=== PATIENT | male | born 1965 | race Caucasian/White ===

== ENCOUNTER 2017-05-21 11:21 | Inpatient (IN) | payer MEDICARE, OTHER ==
[2017-05-21 11:45] VITALS: BMI 19.3
--- NOTE | 2017-05-21 12:57 | HP ---
COWS - Scale Resting Pulse: 0= [place] 80 or Below Sweatin= Chills/Flushing Restless Observation: 1= Difficult to Sit Still Pupil Size: 1= Pupils >than Normal Bone or Joint Aches: 1= Mild Discomfort Runny Nose/ Eye Tearin= Nasal Congestion GI Upset > 30mins: 2= Nausea/Diarrhea Tremor Observation: 2= Slight Tremor Visible Yawning Observation: 1= 1-2x During Session Anxiety or Irritability: 2=Irritable/Anxious Goose Flesh Skin: 3=Piloerection COWS Score: 15 CIWA Score - CIWA Score Nausea/Vomitin Muscle Tremors: 4-Moderate,w/Arms Extend Anxiety: 4-Mod. Anxious/Guarded Agitation: 4-Moderately Restless Paroxysmal Sweats: 3 Orientation: 0-Oriented Tacttile Disturbances: 0-None Auditory Disturbances: 0-None Visual Disturbances: 0-None Headache: 3-Moderate CIWA-Ar Total Score: 21 Admission [facility] - HPI Chief Complaint: withdrawal sx Allergies/Adverse Reactions: Allergies Allergy/AdvReac Type Severity Reaction Status Date / Time No Known Allergies Allergy Verified 05/21/17 12:14 History of Present Illness: 51 yo m with h/o chronic alcoholism, no longer drinking, using heroin x2 years nd xanax daily, last used this AM PMHX nicotien dependence, no other illnesses, no on any medications. requesting detox from heroin and xanax, never been in detox for heroin before. no h/o seiuzres or DTS - Ebola screening Have you traveled outside of the country in the last 21 days: No Have you had contact with anyone from an Ebola affected area: No Have you been sick,other than usual withdrawal symptoms: No Do you have a fever: No - Review of Systems Constitutional: Chills, Diaphoresis, Loss of Appetite, Unintentional Wgt. 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 1981), Nose Congestion Respiratory: reports: No Symptoms reported Cardiac: reports: No Symptoms Reported GI: reports: Diarrhea, Nausea, Poor Appetite, Poor Fluid Intake, Vomiting, Indigestion, Abdominal cramping : reports: No Symptoms Reported Endocrine: reports: No Symptoms Reported Hematology: reports: No Symptoms Reported Psychiatric: reports: Judgement Intact, Mood/Affect Appropiate, Orientated x3, Anxious, Depressed, Disorientated Other Systems: Reviewed and Negative Patient History - Patient Medical History Hx Anemia: No Hx Asthma: No Hx Chronic Obstructive Pulmonary Disease (COPD): No Hx Cancer: No Hx Cardiac Disorders: No Hx Congestive Heart Failure: No Hx Hypertension: No Hx Hypercholesterolemia: No Hx Pacemaker: No HX Cerebrovascular Accident: No Hx Seizures: No Hx Dementia: No Hx Diabetes: No Hx Gastrointestinal Disorders: No Hx Liver Disease: No Hx Genitourinary Disorders: No Hx Sexually Transmitted Disorders: No Hx Renal Disease (ESRD): No Hx Thyroid Disease: No Hx Human Immunodeficiency Virus (HIV): No Hx Hepatitis C: No Hx Depression: No Hx Suicide Attempt: No Hx Bipolar Disorder: No Hx Schizophrenia: No - Patient Surgical History Past Surgical History: Yes Hx Neurologic Surgery: No Hx Cataract Extraction: No Hx Cardiac Surgery: No Hx Lung Surgery: No Hx Breast Surgery: No Hx Breast Biopsy: No Hx Abdominal Surgery: No Hx Appendectomy: No Hx Cholecystectomy: No Hx Genitourinary Surgery: No Hx Section: No Hx Orthopedic Surgery: No Other Surgical History: trauma, right ear in 1981 Anesthesia Reaction: No - PPD History Previous Implant?: Yes Documented Results: Negative w/o proof Implanted On Prior R Admission?: No - Reproductive History Patient is a Female of Child Bearing Age (11 -55 yrs old): No Patient : No - Smoking Cessation Smoking history: Current every day smoker Have you smoked in the past 12 months: Yes Aproximately how many cigarettes per day: 20 Hx Chewing Tobacco Use: No Initiated information on smoking cessation: Yes 'Breaking Loose' booklet given: 05/21/17 - Substance & Tx. History Hx Alcohol Use: Yes (has not used for years) Hx Substance Use: Yes Substance Use Type: Alcohol, Heroin, Opiates, Prescribed, Tranquilizers Hx Substance Use Treatment: Yes ([facility] - Substances Abused Heroin Route: Inhalation Frequency: Daily Amount used: 4-5 bags Age of first use: 49 Date of Last Use: 05/21/17 Xanax Route: Oral Frequency: 3-6 times per week Amount used: 2 mg. Age of first use: 51 Date of Last Use: 05/18/17 Family Disease History - Family Disease History Family Disease History: [place]: Sister, Other: Grandparent (etoh), Father (etoh), Mother (etoh) Admission Physical Exam [facility] - Vital Signs Vital Signs: Vital Signs - 24 hr 05/21/17 11:44 Temperature 97.7 F Pulse Rate 70 Respiratory 18 Rate Blood Pressure 135/90 - Physical General Appearance: Yes: Nourished, Appropriately Dressed, Disheveled, Mild Distress, Thin, Tremorous, Irritable, Sweating, Anxious HEENTM: Yes: EOMI, Normocephalic, Normal Voice, HELENA, Pharynx Normal, Other ( decreased hearing r ear) Respiratory: Yes: Within Normal Limits, Chest Non-Tender, Lungs Clear, Normal Breath Sounds, No Respiratory Distress, No Accessory Muscle Use Neck: Yes: Within Normal Limits, No masses,lesions,Nodules, Supple, Trachea in good position Cardiology: Yes: Within Normal Limits, Regular Rhythm, Regular Rate, S1, S2 Abdominal: Yes: Normal Bowel Sounds, Non Tender, Flat, Soft, Increased Bowel Sounds Genitourinary: Yes: Within Normal Limits Back: Yes: Within Normal Limits, Normal Inspection Musculoskeletal: Yes: full range of Motion, Gait Steady, Back pain (withdrawal sx), Muscle Pain Extremities: Yes: Normal Capillary Refill, Normal Range of Motion, Non-Tender, Tremors 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: 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: 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 NML intact, Fully Oriented, Alert, Motor Strength 5/5, Unresponsive, Depressed Affect Integumentary: Yes: Normal Color, Warm, Diaphoresis Lymphatic: Yes: Within Normal Limits - Addiitonal Findings: withdrawal sx - Diagnostic (1) Nicotine dependence Current Visit: No Status: Acute (2) Alcohol dependence in remission Current Visit: Yes Status: Acute (3) Sedative, hypnotic or anxiolytic dependence with withdrawal, uncomplicated Current Visit: Yes Status: Acute (4) Opioid dependence with withdrawal Current Visit: Yes Status: Acute (5) Insomnia Current Visit: Yes Status: Acute [facility] Breath Alcohol Content Breath Alcohol Content: 0 Urine Drug Screen - Results Drug Screen Negative: No Urine Drug Screen Results: THC-Marijuana, ANNA-Cocaine, OPI-Opiates
[2017-05-21] MEDS ORDERED: MAG HYDROX/AL HYDROX/SIMETH 30 ML UNIT-DOSE CUP PO PRN (13:01)
[2017-05-21] MEDS ORDERED: hydrOXYzine PAMOATE 50 MG CAPSULE (FP) PO PRN (13:01)
[2017-05-21] MEDS ORDERED: ACETAMINOPHEN 325 MG TABLET (FP) PO PRN (13:01)
[2017-05-21] MEDS ORDERED: guaiFENesin/D-METHORPHAN HB 10 ML UNIT-DOSE CUPS PO PRN (13:01)
[2017-05-21] MEDS ORDERED: MAGNESIUM CITRATE 300 ML BOTTLE PO PRN (13:01)
[2017-05-21] MEDS ORDERED: P-EPHED 60MG/TRIPROLIDI 2.5MG TABLET PO PRN (13:01)
[2017-05-21] MEDS ORDERED: MAGNESIUM HYDROX 2400MG/30ML ORAL SUSPENSION 30 ML CUP PO PRN (13:01)
[2017-05-21] MEDS ORDERED: NICOTINE POLACRILEX 4 MG GUM BC PRN (13:01)
[2017-05-21] MEDS ORDERED: LOPERAMIDE HCL 2 MG CAPSULE PO PRN (13:01)
[2017-05-21] MEDS ORDERED: MENTHOL/PHENOL 1 EACH UD MM PRN (13:01)
[2017-05-21] MEDS ORDERED: IBUPROFEN 400 MG TABLET (FP) PO PRN (13:01)
[2017-05-21] MEDS ORDERED: ZOLPIDEM TARTRATE 10 MG TABLET (PARK CARE ONLY) PO PRN (13:05)
[2017-05-21] MEDS ORDERED: diazePAM 5 MG TABLET PO ONE (13:30)
[2017-05-21] MEDS ORDERED: METHADONE HCL 10 MG TABLET (FOR DETOX USE ONLY) PO ONE ×2 (13:30→23:00)
[2017-05-21] MEDS: NICOTINE 21 MG/24 HOURS TOPICAL PATCH TD SCH (14:44)
[2017-05-21 15:18] LABS: HIV 1 & 2 AB NEGATIVE; HIV 1 AGp24 NEGATIVE
[2017-05-21 16:23] LABS: URINE APPEARANCE SLCLOUDY; URINE BILIRUBIN NEGATIVE (NEGATIVE); URINE BLOOD NEGATIVE (NEGATIVE); URINE COLOR AMBER; URINE GLUCOSE (UA) NEGATIVE (NEGATIVE); URINE KETONE TRACE (NEGATIVE); URINE NITRITE NEGATIVE (NEGATIVE); URINE PROTEIN NEGATIVE (NEGATIVE)
--- NOTE | 2017-05-21 17:08 | EKG ---
Test Reason : Blood Pressure : / mmHG Vent. Rate : 069 BPM Atrial Rate : 069 BPM P-R Int : 156 ms QRS Dur : 082 ms QT Int : 390 ms P-R-T Axes : 076 065 075 degrees QTc Int : 417 ms NORMAL SINUS RHYTHM NORMAL ECG NO PREVIOUS ECGS AVAILABLE Confirmed by EDUARDO BELTRE MD ([id number]) on 05/21/2017 5:08:23 PM Referred By: Confirmed By:EDUARDO BELTRE MD
[2017-05-21 17:51] LABS: URINE LEUK ESTERASE Negative (NEGATIVE)
[2017-05-21] MEDS: diazePAM 5 MG TABLET PO SCH (22:15)
[2017-05-21] MEDS: THIAMINE HCL 100 MG TABLET (FP) PO SCH (22:15)
[2017-05-22] MEDS: diazePAM 5 MG TABLET PO SCH ×3 (05:30→22:21)
[2017-05-22 09:50] LABS: CALCIUM 8.8 mg/dL (8.5-10.1)
[2017-05-22 09:55] LABS: ALK PHOS 92 U/L (45-117); ANION GAP 5 (8-16); BILIRUBIN,TOTAL 0.8 mg/dL (0.2-1.0); CO2 29 mmol/L (21-32); CREATININE 0.9 mg/dL (0.7-1.3); GLUCOSE,RANDOM 100 mg/dL (74-106); SGOT/AST 7 U/L (15-37); SGPT/ALT 15 U/L (12-78)
[2017-05-22 09:57] LABS: MCH 30.3 pg (25.7-33.7); MCHC 33.8 g/dl (32.0-35.9); MEAN CELL VOLUME 89.5 fl (80-96); PLATELET COUNT 215 K/MM3 (134-434); WHITE BLOOD COUNT 8.7 K/mm3 (4.0-10.0)
[2017-05-22] MEDS ORDERED: METHADONE HCL 10 MG TABLET (FOR DETOX USE ONLY) PO SCH (10:00)
[2017-05-22] MEDS: diazePAM 5 MG TABLET PO PRN ×2 (10:04→17:11)
[2017-05-22] MEDS: NICOTINE 21 MG/24 HOURS TOPICAL PATCH TD SCH (10:04)
[2017-05-22] MEDS: PRENATAL VITAMINS W/ FOLIC ACID TABLET (FP) PO SCH (10:04)
[2017-05-22] MEDS ORDERED: FLU VACCINE QUAD 60 MCG/0.5 ML (MDV 17-18) IM ONE (12:00)
--- NOTE | 2017-05-22 12:26 | PN ---
S CIWA - CIWA Score Nausea/Vomitin Muscle Tremors: 4-Moderate,w/Arms Extend Anxiety: 1-Mildly Anxious Agitation: 0-Normal Activity Paroxysmal Sweats: 3 Orientation: 0-Oriented Tacttile Disturbances: 2-Mild Itch/Numbness/Burn Auditory Disturbances: 2-Mild Harshness/Frighten Visual Disturbances: 3-Moderate Sensitivity Headache: 0-None Present CIWA-Ar Total Score: 17 S COWS - Scale Resting Pulse: 0= [place] 80 or Below Sweatin= Chills/Flushing Restless Observation: 0= Sits Still Pupil Size: 0= Normal to Room Light Bone or Joint Aches: 1= Mild Discomfort Runny Nose/ Eye Tearin= Nasal Congestion GI Upset > 30mins: 1= Stomach Cramp Tremor Observation of Outstretched Hands: 2= Slight Tremor Visible Yawning Observation: 1= 1-2x During Session Anxiety or Irritability: 2=Irritable/Anxious Goose Flesh Skin: 3=Piloerection COWS Score: 12 S Progress Note (SOAP) Subjective: Sweating, Stomach Cramping, Interrupted sleep, Tremors. Objective: PT. A & O X 3, OBSERVED AMBULATING ON UNIT. NO ACUTE DISTRESS. 05/22/17 12:25 Vital Signs Temperature 96.5 F L 05/22/17 10:00 Pulse Rate 64 05/22/17 10:00 Respiratory Rate 18 05/22/17 10:00 Blood Pressure 131/76 05/22/17 10:00 O2 Sat by Pulse Oximetry (%) Laboratory Tests 05/21/17 05/21/17 05/21/17 12:40 13:30 14:00 WBC RBC Hgb Hct MCV MCH MCHC RDW Plt Count MPV Sodium Potassium Chloride Carbon Dioxide Anion Gap BUN Creatinine Creat Clearance w eGFR Random Glucose Calcium Total Bilirubin AST ALT Alkaline Phosphatase Total Protein Albumin Urine Color Debbie Urine Appearance Slcloudy Urine pH 5.0 Ur Specific [place] 1.028 Urine Protein Negative Urine Glucose (UA) Negative Urine Ketones Trace H Urine Blood Negative Urine Nitrite Negative Urine Bilirubin Negative Urine Urobilinogen 2.0 Ur Leukocyte Esterase Negative Hepatitis C Antibody 0.1 HIV 1&2 Antibody Screen Negative HIV P24 Antigen Negative 05/22/17 05/22/17 06:00 06:00 WBC 8.7 RBC 5.17 Hgb 15.6 Hct 46.2 MCV 89.5 MCH 30.3 MCHC 33.8 RDW 14.0 Plt Count 215 MPV 9.0 Sodium 138 Potassium 4.0 Chloride 104 Carbon Dioxide 29 Anion Gap 5 L BUN 14 Creatinine 0.9 Creat Clearance w eGFR > 60 Random Glucose 100 Calcium 8.8 Total Bilirubin 0.8 AST 7 L ALT 15 Alkaline Phosphatase 92 Total Protein 7.0 Albumin 4.0 Urine Color Urine Appearance Urine pH Ur Specific [place] Urine Protein Urine Glucose (UA) Urine Ketones Urine Blood Urine Nitrite Urine Bilirubin Urine Urobilinogen Ur Leukocyte Esterase Hepatitis C Antibody HIV 1&2 Antibody Screen HIV P24 Antigen LABS NOTED. RPR RESULT PENDING. 05/22/17 12:26 Assessment: 05/22/17 12:25 WITHDRAWAL SYMPTOMS. Plan: CONTINUE DETOX. INCREASE DAILY PO FLUID INTAKE.
[2017-05-22] MEDS: THIAMINE HCL 100 MG TABLET (FP) PO SCH (22:21)
[2017-05-23 06:45] VITALS: PULSE 61
[2017-05-23 09:51] VITALS: BP 127/78; TEMP 96.3
[2017-05-23] MEDS ORDERED: METHADONE HCL 5 MG TABLET (FOR DETOX USE ONLY) PO SCH (10:00)
[2017-05-23] MEDS ORDERED: diazePAM 5 MG TABLET PO SCH (10:00)
[2017-05-23] MEDS: PRENATAL VITAMINS W/ FOLIC ACID TABLET (FP) PO SCH (10:02)
[2017-05-23] MEDS: NICOTINE 21 MG/24 HOURS TOPICAL PATCH TD SCH (10:03)
[2017-05-23] MEDS ORDERED: ONDANSETRON *ODT* 4 MG TABLET SL PRN (11:33)
--- NOTE | 2017-05-23 18:28 | DS ---
[facility] Detox Discharge Summary Admission Date: 05/21/17 Discharge Date: 05/23/17 - History Present History: Opioid Dependence, Sedative Dependence Additional Comments: PATIENT HAS PERSONAL ISSUE TO ATTEND TO AND DOES NOT WISH TO STAY TO COMPLETE DETOX REGIMEN. RISKS OF LEAVING DETOX UNIT PREMATURELY BEFORE COMPLETION OF DETOX REGIMEN DISCUSSED WITH PATIENT. PATIENT ADVISED TO GO IMMEDIATELY TO NEAREST ER SHOULD ANY INTOLERABLE DETOX SYMPTOMS DEVELOP AT ANY TIME. PATIENT LEFT DETOX UNIT IN STABLE MEDICAL CONDITION. Pertinent Past History: Insomnia, Nicotine Dependence. - Physical Exam Results Vital Signs: Vital Signs Temperature 96.3 F L 05/23/17 09:50 Pulse Rate 61 05/23/17 09:50 Respiratory Rate 18 05/23/17 09:50 Blood Pressure 127/78 05/23/17 09:50 O2 Sat by Pulse Oximetry (%) Pertinent Admission Physical Exam Findings: WITHDRAWAL SYMPTOMS. Laboratory Tests 05/21/17 05/21/17 05/21/17 12:40 13:30 14:00 WBC RBC Hgb Hct MCV MCH MCHC RDW Plt Count MPV Sodium Potassium Chloride Carbon Dioxide Anion Gap BUN Creatinine Creat Clearance w eGFR Random Glucose Calcium Total Bilirubin AST ALT Alkaline Phosphatase Total Protein Albumin Urine Color Debbie Urine Appearance Slcloudy Urine pH 5.0 Ur Specific [place] 1.028 Urine Protein Negative Urine Glucose (UA) Negative Urine Ketones Trace H Urine Blood Negative Urine Nitrite Negative Urine Bilirubin Negative Urine Urobilinogen 2.0 Ur Leukocyte Esterase Negative RPR Titer Hepatitis C Antibody 0.1 HIV 1&2 Antibody Screen Negative HIV P24 Antigen Negative 05/22/17 05/22/17 05/22/17 06:00 06:00 06:00 WBC 8.7 RBC 5.17 Hgb 15.6 Hct 46.2 MCV 89.5 MCH 30.3 MCHC 33.8 RDW 14.0 Plt Count 215 MPV 9.0 Sodium 138 Potassium 4.0 Chloride 104 Carbon Dioxide 29 Anion Gap 5 L BUN 14 Creatinine 0.9 Creat Clearance w eGFR > 60 Random Glucose 100 Calcium 8.8 Total Bilirubin 0.8 AST 7 L ALT 15 Alkaline Phosphatase 92 Total Protein 7.0 Albumin 4.0 Urine Color Urine Appearance Urine pH Ur Specific [place] Urine Protein Urine Glucose (UA) Urine Ketones Urine Blood Urine Nitrite Urine Bilirubin Urine Urobilinogen Ur Leukocyte Esterase RPR Titer Nonreactive Hepatitis C Antibody HIV 1&2 Antibody Screen HIV P24 Antigen LABS NOTED. - Treatment Hospital Course: Detoxed Safely - Medication Discharge Medications: Ambulatory Orders NK [No Known Home Medication] 05/21/17 - Diagnosis (1) Insomnia Status: Acute Qualifiers: Insomnia type: unspecified Qualified Code(s): G47.00 - Insomnia, unspecified; G47.00 - Insomnia, unspecified (2) Opioid dependence with withdrawal Status: Acute (3) Sedative, hypnotic or anxiolytic dependence with withdrawal, uncomplicated Status: Acute (4) Nicotine dependence Status: Acute Qualifiers: Nicotine product type: cigarettes Substance use status: uncomplicated Qualified Code(s): F17.210 - Nicotine dependence, cigarettes, uncomplicated; F17.210 - Nicotine dependence, cigarettes, uncomplicated (5) Alcohol dependence in remission Status: Acute - AMA Did Patient Leave Against Medical Advice: Yes (PT. HAD PERSONAL ISSUE AND DID NOT WISH TO STAY TO COMPLETE DETOX REGIMEN.)
[2017-05-25] MEDS ORDERED: diazePAM 5 MG TABLET PO SCH (10:00)
[2017-05-25] MEDS ORDERED: METHADONE HCL 10 MG TABLET (FOR DETOX USE ONLY) PO SCH (10:00)
[2017-05-26] MEDS ORDERED: METHADONE HCL 5 MG TABLET (FOR DETOX USE ONLY) PO SCH (06:00)
== END 2017-05-23 11:33 | disposition left against medical advice (07) | DRG 770 ==
LOC: YASAS 11:21 → Y3N 12:57
PROVIDERS: ADMIT Internal Medicine; ATTEND Internal Medicine
PROC: HZ2ZZZZ Detoxification Services for Substance Abuse Treatment (ICD-10-PCS; principal; 2017-05-21)
DX: F11.23 Opioid dependence with withdrawal (principal); F13.230 Sedative, hypnotic or anxiolytic dependence with withdrawal, uncomplicated; F10.21 Alcohol dependence, in remission; F17.210 Nicotine dependence, cigarettes, uncomplicated; G47.00 Insomnia, unspecified
CPT/HCPCS: 36415; 80053; 81003; 85027; 86593; 86803; 87389; 90688; 93005; 93010; G0008